=== PATIENT | male | born 1980 | race Caucasian/White ===

== ENCOUNTER 2016-05-30 15:25 | Emergency (ER) | payer MEDICARE ==
[2016-05-30] MEDS ORDERED: cefTRIAXone SODIUM 1 GM VIAL ONE (16:14)
[2016-05-30] MEDS ORDERED: Lidocaine 1% 5ml(IM or SUTURE)(PAIN CLINIC) IJ ONE (16:14)
[2016-05-30] MEDS ORDERED: Lidocaine 1% 5ml(IM or SUTURE)(PAIN CLINIC) ONE (16:14)
[2016-05-30] MEDS ORDERED: cefTRIAXone SODIUM 1 GM VIAL IM ONE (16:14)
--- NOTE | 2016-05-30 16:16 | ED Physician Documentation ---
General Adult - HISTORIAN Historian: patient - HPI Stated Complaint: Redness/Swelling/Sores to Bilateral Legs Chief Complaint: General Adult Onset: days ago (unknown onset) Further Comments: yes (36 year old male patient presents with complaint of wounds on bilateral lower legs. Patient states the 2 wounds on his left leg "have been there a long time, they just popped up." States the wound on his right lower leg started around [place].) - ROS CONST: no problems EYES/ENT: none CVS/RESP: none GI/: none MS/SKIN/LYMPH: none NEURO/PSYCH: denies: headache - PAST HX Past History: hypertension Surgeries/Procedures: other (right knee arthroscopy) Allergies/Adverse Reactions: Allergies Allergy/AdvReac Type Severity Reaction Status Date / Time No Known Allergies Allergy Unverified 05/30/16 15:40 Home Medications: Ambulatory Orders Medication Instructions Recorded Sulfamethoxazole/Trimethoprim 1 each PO BID #20 tab 05/30/16 [Bactrim Ds] - SOCIAL HX Smoking History: cigarettes - FAMILY HX Family History: No - VITAL SIGNS Vital Signs: Vital Signs Temp Pulse Resp BP Pulse Ox 98.1 F 103 H 18 148/88 99 05/30/16 15:25 05/30/16 15:25 05/30/16 15:25 05/30/16 15:25 05/30/16 15:25 - REVIEWED ASSESSMENTS Nursing Assessment Reviewed: Yes Vitals Reviewed: Yes ED Results Lab/Radiology - Orders Orders: ED Orders Category Date Time Status Lidocaine 1% 5ml(IM or SUTURE) [Xylocaine] Med 05/30/16 16:14 Once 50 mg IJ NOW ONE cefTRIAXone SODIUM [Rocephin] Med 05/30/16 16:14 Once 1 gm IM NOW ONE General Adult Physical Exam - PHYSICAL EXAM GENERAL APPEARANCE: mild distress EENT: eye inspection normal, ZAIRA RESPIRATORY: no resp distress, chest non-tender, breath sounds normal CVS: reg rate & rhythm, heart sounds normal, equal pulses, no murmur, no gallop , PMI nml, no JVD, no friction rub, 24 ABDOMEN: soft, no organomegaly, normal bowel sounds, no abdominal bruit, no distension SKIN: warm/dry, other (Right lower leg with 6x6 cm erythema with 2cm dark scabbed area in center, 2+ pitting edema: Left leg with 2 areas of erythema and dark scabbed center each 3x3 cm; no drainage from any wounds. ) EXTREMITIES: non-tender, normal range of motion, no evidence of injury, no edema , J, [employer] NEUR[employer]: oriented X3, CN's nml as tested, motor nml, sensation nml, mood/affect nml Discharge Clincal Impression: Cellulitis of leg Qualifiers: Laterality: right Qualified Code(s): L03.115 - Cellulitis of right lower limb Prescriptions: Sulfamethoxazole/Trimethoprim [Bactrim Ds] 1 each PO BID #20 tab Referrals: Primary Doctor,No [Primary Care Provider] - 2 Days Additional Instructions: Return tomorrow for a ultrasound of your right leg. Start your antibiotics today Clean the wounds twice a day with hibiclens soap, you can buy it at the pharmacy Apply a thin coat of antibiotic ointment and cover with a bandage. Return tomorrow for a ultrasound of your right leg. Home Medications: Ambulatory Orders Sulfamethoxazole/Trimethoprim [Bactrim Ds] 1 each PO BID #20 tab 05/30/16 Condition: Stable Disposition: HOME, SELF-CARE Decision to Admit: NO Decision Time: 16:15
[2016-05-30 16:33] VITALS: BP 144/68
== END 2016-05-30 16:32 | disposition home or self-care (01) ==
LOC: ED 15:25
DX: L03.115 Cellulitis of right lower limb (principal)
CPT/HCPCS: 96372; 99283; J0696

== ENCOUNTER 2017-01-05 16:49 | Emergency (ER) | payer MEDICARE ==
--- NOTE | 2017-01-05 17:47 | ED Physician Documentation ---
Lower Extremity Injury - HISTORIAN Historian: patient, friend - HPI Stated Complaint: fall left knee pain Chief Complaint: Lower Extremity Injury Additional Information: fell on lt knee 2 times getting out of bath tub approx 1630 w/sig hematoma inner aspect knee--prev surg x 2 this knee Where: home Severity: moderate Context: fall, direct blow Associated Symptoms:: swelling. denies: numbness distally, snapping sensation, unable to bear weight (walks w/sig limp) Modifying Factors:: pain on movement - ROS CONST: no problems CVS/RESP: none GI/: denies: problems urinating MS/SKIN/LYMPH: none NEURO: denies: headache - PAST HX Past History: other (htn) Allergies/Adverse Reactions: Allergies Allergy/AdvReac Type Severity Reaction Status Date / Time No Known Allergies Allergy Verified 01/05/17 17:10 - SOCIAL HX Smoking History: less than 1 pack/day Alcohol Use: none Drug Use: none - FAMILY HX Family History: no significant history - VITAL SIGNS Vital Signs: Vital Signs Temp Pulse Resp BP Pulse Ox 98.3 F 75 20 174/100 97 01/05/17 16:51 01/05/17 16:51 01/05/17 16:51 01/05/17 16:51 01/05/17 16:51 - REVIEWED ASSESSMENTS Nursing Assessment Reviewed: Yes Vitals Reviewed: Yes ED Results Lab/Radiology - Radiology Radiology Impressions: no fracture seen on xray - Orders Orders: ED Orders Category Date Time Status KNEE 3 VIEWS [RAD] Stat Exams 01/05/17 Taken Lower Extremities Injury Phy - Physical Exam General Appearance: mild distress Ligaments: pain on anterior drawer, pain on posterior drawer, pain on lateral stress. No: laxity on anterior drawer, laxity on lateral stress (all movements and walking exaberate the sharp pain over hematoma) Gait: No: unable to bear weight Neuro/Vascular/Tendon: no vascular compromise, motor nml, sensation nml. No: abnml color, abnml cap refill Head/ENT: nml inspection Neck/Back: nml inspection Resp/CVS: chest non-tender, breath sounds nml, heart sounds nml Abdomen: non-tender Discharge Clincal Impression: knee pain-hematoma from fall, uncontrolled htn Referrals: Primary Doctor,No [Primary Care Provider] - 2 Days Condition: Good Disposition: 01 HOME, SELF-CARE Decision to Admit: NO Decision Time: 17:53
[2017-01-05 17:56] VITALS: BP 144/90
--- NOTE | 2017-01-05 19:09 | Diagnostic Imaging Report ---
BOWEN QUINONES [facility] [id number] [facility] [address] [address] Report Submission Date: Jan 05, 2017 6:07:05 PM CDT Patient Study Name: JULIO NEWMAN Date: Jan 05, 2017 5:09:13 PM CDT Modality Type: CR Gender: M Description: LOWER EXTREMITY : 82 Institution: [facility] Physician: BOWEN QUINONES 3 views of the left knee Clinical history: Left knee pain Findings: No acute fracture dislocation is identified. No significant joint effusion. There is mild lateral subluxation of the patella. Otherwise, the alignment is normal. Impression: 1. Mild lateral subluxation of the patella which could reflect a retinaculum injury. 2. No acute fracture Electronically signed on Jan 05, 2017 6:07:05 PM CDT by: Hugo CHIRINOS
== END 2017-01-05 17:52 | disposition home or self-care (01) ==
LOC: ED 16:49
DX: S80.02XA Contusion of left knee, initial encounter (principal); W19.XXXA Unspecified fall, initial encounter; Y93.9 Activity, unspecified; Y99.9 Unspecified external cause status; I10 Essential (primary) hypertension
CPT/HCPCS: 73562; 99283